=== PATIENT | male | born 1935 | race Caucasian/White ===

== ENCOUNTER → 2021-05-02 14:59 | Outpatient (CLI) | payer MEDICARE, SELFPAY ==
--- NOTE | ~2021-05-02 | CT_ITS ---
EXAMINATION: CT diagnostic chest wo con EXAM DATE: 05/02/2021 15:16 INDICATION: R05 - Cough . TECHNIQUE: Spiral CT of the chest without contrast. Axial, coronal and sagittal images of the chest were reviewed. Coronal maximum intensity pixel images of chest reviewed. The dose-length product ( DLP) for this examination was 328.17 mGy-cm. The exposure was tailored according to patient size (au to mA exposure control), and iterative reconstruction (ASIR) was used as additional dose reduction te chnique. There is no prior study for comparison. FINDINGS: The lungs are clear. There are no pleural or pericardial effusions. Tracheobronchial t ree is patent. There is no mediastinal, hilar or axillary lymphadenopathy. There is no pneumothor ax. Heart normal in size. There is mild coronary arterial calcification, arterial sclerosis. Upp er abdomen is unremarkable. Moderate-sized lower thoracic bridging endplate osteophytes. Goiter IMPRESSION: 1. Clear lungs. Reviewed, dictated and finalized at location B. IMPRESSION: 1. Clear lungs.
== END ==
PROVIDERS: PCP Nurse Practitioner; Visit Provider Nurse Practitioner
DX: Z12.2 Encounter for screening for malignant neoplasm of respiratory organs (principal); Z87.891 Personal history of nicotine dependence
CPT/HCPCS: 71250

== ENCOUNTER 2022-03-27 21:27 | Emergency (ER) | payer MEDICARE, SELFPAY ==
[2022-03-27] VITALS (13 sets, daily range): BP systolic 131–163; BP diastolic 54–69; PULSE 70–90; RESP 16–36; TEMP 36.1; O2SAT 93–96
--- NOTE | ~2022-03-27 | XR_ITS ---
EXAMINATION: XR chest 1V portable INDICATION: Shortness of breath, COVID 19 positive TECHNIQUE: Portable AP chest at 2158 hours COMPARISON: 07/31/2016 FINDINGS: There are minimal airspace opacities of the lung bases. Cardiomegaly is noted. There is no pleural effusion or pneumothorax. IMPRESSION: 1. Minimal bibasilar airspace opacities, consistent with atelectasis versus pneumonia. 2. Cardiomegaly. Reviewed, dictated and finalized at location F. IMPRESSION: 1. Minimal bibasilar airspace opacities, consistent with atelectasis versus pne umonia. 2. Cardiomegaly.
--- NOTE | 2022-03-27 21:35 | ECG_ITS ---
Measurements Intervals [place] Rate: 78 P: 56 FL: 165 QRS: -60 QRSD: 134 T: 120 QT: 423 QTc: 482 Interpretive Statements SINUS RHYTHM WITH OCCASIONAL VENTRICULAR PREMATURE COMPLEXES LEFT AXIS DEVIATION [QRS AXIS < -30] LEFT BUNDLE BRANCH BLOCK [120+ ms QRS DURATION, 80+ ms Q/S IN V1/V2, 85+ ms R IN I/aVL/V5/V6] ABNORMAL ECG NO PREVIOUS ECG AVAILABLE FOR COMPARISON Electronically Signed On 03-28-2022 11:29:49 CDT by Eber Delaney M.D.
[2022-03-27 22:04] LABS: Basophils Absolute Auto 0.1 K/mm3 (0.0-0.1); Basophils Percent Auto 1.1 % (0.2-1.2); Eosinophils Percent Auto 0.7 % (0-4.4); Hematocrit 46.9 % (42.0-52.0); Hemoglobin 15.1 g/dL (14.0-18.0); Immature Granulocyte Absolute 0.02 K/mm3 (0.00-0.031); Immature Granulocyte Percent A 0.4 % (0-0.5); Lymphocytes Absolute Auto 1.09 K/mm3 (0.9-3.2); Lymphocytes Percent Auto 19.7 % (18.3-44.2); Mean Corpuscular HGB Conc 32.2 g/dl (32-36); Mean Corpuscular Hemoglobin 30.4 pg (26-34); Mean Corpuscular Volume 94.4 fl (80-100); Mean Platelet Volume 12.5 fl (7.4-10.4); Monocytes Absolute Auto 1.3 K/mm3 (0.1-0.6); Monocytes Percent Auto 23.3 % (2.6-8.5); Neutrophils Percent Auto 54.8 % (45.5-73.1); Platelet Count Result 104 k/mm3 (150-375); Red Blood Count 4.97 M/mm3 (4.6-6.20); White Blood Count 5.5 K/mm3 (4.5-10.0)
[2022-03-27 22:16] LABS: Alanine Aminotransferase 19 U/L (6-50); Alkaline Phosphatase 47 U/L (38-126); Anion Gap 10 mmol/L (8-16); Aspartate Amino Transferase 37 U/L (17-59); Bilirubin,Total 1.6 mg/dL (0.2-1.3); Blood Urea Nitrogen 27 mg/dL (9-20); Calcium 8.4 mg/dL (8.4-10.2); Carbon Dioxide 24 mmol/L (22-30); Chloride 105 mmol/L (98-107); Estimated CRCL calculation 31 ml/min; Estimated Glomerular Filt Rate 48; Glucose 129 mg/dL (65-110); Potassium 3.9 mmol/L (3.4-5.0); Sodium 139 mmol/L (137-145)
--- NOTE | 2022-03-28 00:09 | ED.SOB ---
HPI - SOB/Dyspnea General Chief Complaint: Shortness of Breath/Dyspnea Stated Complaint: SOB, COVID + Time Seen by Provider: 03/27/22 22:08 History of Present Illness HPI Narrative: Patient is an 87-year-old male who presents ER after testing positive for COVID-19 at home. His is also positive. He reports he has been feeling weak and mildly short of breath. Occasional cough. No chest pain or chest pressure. She has been on no medications. He reports he has had his COVID vaccination. Some history hard to obtain due to patient being hard of hearing. Patient has had no falls. He is not oxygen dependent. Related Data Home Medications Medication Instructions Recorded Confirmed aspirin 81 mg tablet,delayed 81 mg PO DAILY 09/09/19 08/09/21 release (Adult Low Dose Aspirin) Allergies Allergy/AdvReac Type Severity Reaction Status Date / Time Penicillins Allergy Unknown Hives Verified 03/27/22 21:36 Review of Systems Review of Systems: All systems reviewed & are unremarkable except as noted in HPI and below Constitutional: Constitutional: Denies chills, Reports fatigue and Reports fever(s) ENT: Denies nasal congestion and Denies sore throat Cardiovascular: Cardiovascular: Denies chest pain, Denies rapid heart rate and Denies radiating jaw, neck or arm pain Respiratory: Respiratory: Denies chest congestion, Reports cough, Reports dyspnea and Denies wheezing Gastrointestinal: Gastrointestinal: Denies abdominal pain, Denies diarrhea, Denies nausea and Denies vomiting Musculoskeletal: Musculoskeletal: Denies back pain and Denies myalgias PMFSH Past Medical History Medical History Bradycardia Cataract Right surgery 09/2020 Chicken pox CVA (cerebral vascular accident) Taking Clopidogrel Emphysema of lung Hypertension Hypertriglyceridemia Type 2 diabetes mellitus Surgical History Surgical History H/O removal of cyst 03/2019 Family History Family History Mother Diabetes mellitus Family history of malignant neoplasm Sibling Liver disease Brain tumor Social History Social History Smoking packs per day: 0.5 Smoking cigarettes per day: 10.0 Smoking status: Current every day smoker Alcohol intake: never Substance use: never Exam Narrative: GENERAL: Chronically ill-appearing, well-nourished, and in no acute distress. HEAD: Normocephalic, atraumatic. ENT: Mucous membranes moist. CHEST: Clear to auscultation with basilar crackles. No respiratory distress. HEART: Regular rate and rhythm. Normal peripheral pulses. ABDOMEN: Soft, nontender, nondistended. EXTREMITIES: Normal range of motion. No edema. SKIN: Warm, dry, no rash. NEURO: Alert and oriented x3. PSYCH: Normal mood and affect. Course Course Emergency Course: Patient resting comfortably. Reports he feels as if he is able to go home and does not feel short of breath. No hypoxia. Patient has multiple medication interactions with Paxlovid and thus I do not feel he should receive Paxil bed. He has been vaccinated. He will be prescribed azithromycin for questionable basilar pneumonia especially given lung disease and advanced age. Vital Signs Vital signs: Vital Signs Temperature 97 F L 03/27/22 21:28 Pulse Rate 85 03/27/22 21:28 Respiratory Rate 16 03/27/22 21:28 Blood Pressure 131/54 L 03/27/22 21:28 Pulse Oximetry 96 03/27/22 21:28 Oxygen Delivery Room Air 03/27/22 21:28 Temperature 97 F L 03/27/22 21:28 Pulse Rate 83 03/27/22 23:46 Respiratory Rate 31 H 03/27/22 23:46 Blood Pressure 163/69 H 03/27/22 23:46 Pulse Oximetry 94 03/27/22 23:46 Oxygen Delivery Room Air 03/27/22 21:28 MDM - SOB/Dyspnea Lab Data Result diagrams: 03/27/22 21:54
[2022-03-28 00:16] VITALS: BP 147/83; PULSE 86; RESP 24; O2SAT 95
[2022-03-28 00:32] VITALS: PULSE 86; RESP 37; O2SAT 94
[2022-03-28 00:45] VITALS: PULSE 80; RESP 34
[2022-03-28 00:46] VITALS: BP 164/72; PULSE 84; RESP 20; O2SAT 94
== END 2022-03-28 01:13 | disposition home or self-care (01) ==
PROVIDERS: Emergency Provider Emergency Medicine; PCP Internal Medicine
DX: U07.1 COVID-19 (principal); I10 Essential (primary) hypertension; E11.9 Type 2 diabetes mellitus without complications; J43.9 Emphysema, unspecified; F17.210 Nicotine dependence, cigarettes, uncomplicated
CPT/HCPCS: 36415; 71045; 80053; 85025; 93005; 99283

== ENCOUNTER 2022-03-29 11:30 | Outpatient (RCR) | payer MEDICARE, SELFPAY ==
[2022-03-29 11:59] VITALS: BP 137/94; PULSE 80; RESP 20; TEMP 36.4; O2SAT 100
[2022-03-29] MEDS: ACETAMINOPHEN 325 MG TABLET 650 MG PO (12:05)
[2022-03-29] MEDS: FAMOTIDINE 20 MG TABLET PO (12:05)
[2022-03-29] MEDS: diphenhydrAMINE HCl CAP 25 MG CAPSULE PO (12:05)
--- NOTE | 2022-03-29 12:18 | PC.NURSE ---
Spoke to Ms Giles and she is giving permission for consent to treat and also for the use of medication. She has no other questions at this time.
[2022-03-29] MEDS: BEBTELOVIMAB 175 MG/2 ML VIAL IV PUSH (12:40)
[2022-03-29 13:22] VITALS: BP 130/88; PULSE 87; RESP 20; O2SAT 99
== END 2022-03-29 16:00 ==
LOC: AMCINF 11:30
PROVIDERS: Visit Provider Internal Medicine Hematology & Oncology
DX: U07.1 COVID-19 (principal); I10 Essential (primary) hypertension; J44.9 Chronic obstructive pulmonary disease, unspecified; N18.9 Chronic kidney disease, unspecified; E11.9 Type 2 diabetes mellitus without complications
CPT/HCPCS: A9270; M0222; Q0222

== ENCOUNTER 2022-11-19 14:14 | Outpatient (CLI) | payer MEDICARE, SELFPAY ==
--- NOTE | ~2022-11-19 | XR_ITS ---
EXAMINATION: XR chest 2V Exam Date/Time: 11/19/2022 14:33 ASSEMBLER ARRANGER HISTORY: R05.9 - Cough, SOB Comparison: None available. RESULT: Lines, tubes, and devices: None. Lungs and pleura: Senescent changes, bibasilar atelectasis and scarring, otherwise clear. Cardiomediastinal silhouette: Stable. Other: No acute osseous or upper abdominal finding. IMPRESSION: No acute cardiopulmonary process. Reviewed, dictated and finalized at location K. MBLER ARRANGER
== END 2022-11-19 14:15 | disposition home or self-care (01) ==
PROVIDERS: PCP Internal Medicine; Visit Provider Nurse Practitioner
DX: R05.9 Cough, unspecified (principal)
CPT/HCPCS: 71046

== ENCOUNTER 2023-01-21 11:00 | Outpatient (CLI) | payer MEDICARE, SELFPAY ==
--- NOTE | ~2023-01-21 | US_ITS ---
EXAMINATION: US renal BI DATE: 01/21/2023 12:18 INDICATION: Proteinuria TECHNIQUE: Multiple grayscale and Doppler ultrasound images of the kidneys were obtained. COMPARISON: None. FINDINGS: The right kidney measures 8.1 x 4.1 x 3.5 cm. The left kidney measures 8.8 x 4.2 x 3.3 cm. The kidneys demonstrate normal parenchymal echogenicity. There is no hydronephrosis. The bladder demo nstrates mild wall thickening which could be due to incomplete distention. IMPRESSION: 1. Mild atrophy of the kidneys without hydronephrosis. 2. Mild wall thickening of the urinary bladder which could be due to incomplete distention. Reviewed, dictated and finalized at location F.
== END 2023-01-21 11:01 | disposition home or self-care (01) ==
PROVIDERS: PCP Nurse Practitioner; Visit Provider Internal Medicine Nephrology
DX: R80.9 Proteinuria, unspecified (principal); I10 Essential (primary) hypertension
CPT/HCPCS: 76775

== ENCOUNTER 2023-03-27 14:43 | Outpatient (CLI) | payer MEDICARE, SELFPAY ==
--- NOTE | 2023-03-27 15:32 | PCRCNOTE ---
PATIENT CAME IN FOR PFT, UNABLE TO PREFORM. MAURICE AT DR. DAVIS NOTIFIED. 6 MINUTE WALK COMPLETED.
--- NOTE | 2023-03-28 11:20 | WPDSIXMINUTE ---
Six Minute Walk Procedure Procedure Performed Pulmonary Stress Test (6 min walk) Six Minute Walk Six Minute Walk: This 6 minute walk test was carried out with the patient breathing ambient air. The pre-walk baseline saturation was 95%. The patient walked 182 m with no stops during testing. During the walk the oxyhemoglobin saturation remained in the range of 93%-96%. Impression: No evidence of oxyhemoglobin desaturation on this testing.
== END 2023-03-27 14:44 | disposition home or self-care (01) ==
PROVIDERS: PCP Nurse Practitioner; Visit Provider Internal Medicine Pulmonary Disease
DX: R05.9 Cough, unspecified (principal); Z87.891 Personal history of nicotine dependence
CPT/HCPCS: 94618

== ENCOUNTER 2023-12-26 22:40 | Inpatient (IN) | payer MEDICARE, SELFPAY ==
[2023-12-26] VITALS (7 sets, daily range): BP systolic 104–132; BP diastolic 44–58; PULSE 72–93; RESP 24–38; TEMP 36.1; O2SAT 82–97
--- NOTE | ~2023-12-26 | XR_ITS ---
EXAMINATION: XR chest 1V portable INDICATION: Shortness of breath TECHNIQUE: Portable AP chest at 2344 hours COMPARISON: 11/19/2022 FINDINGS: There are minimal airspace opacities of the lung bases. No pleural effusion or pneumothorax . The cardiomediastinal silhouette is normal for technique. IMPRESSION: 1. Minimal bibasilar airspace opacities, consistent with atelectasis versus pneumonia. Reviewed, dictated and finalized at location F. ERTY UNDERWRITER IMPRESSION: 1. Minimal bibasilar airspace opacities, consistent with atelectasis versus pne umonia.
--- NOTE | ~2023-12-26 | CT_ITS ---
CT head without contrast Indication: Unresponsive Technique: Serial scans were obtained through the brain without the administration of contrast. Dose reduction technique was used on this scan by utilizing automated exposure control and iterative recon struction technique. The dose-length product (DLP) was 681.00 mGy-cm. Findings: There is no evidence of intracranial hemorrhage, mass lesion, or acute infarct. Chronic inf arct present involving the left periventricular white matter and left insular cortex region. The vent ricles and subarachnoid spaces are dilated, consistent with mild atrophy. Low attenuation regions ar e seen within the periventricular white matter bilaterally, likely representing changes from chronic microvascular ischemic disease. There is no evidence of edema, mass effect or midline shift. The vi sualized paranasal sinuses and mastoid air cells are clear. Impression: No intracranial hemorrhage, mass, or acute infarct. Chronic left MCA distribution infarct. Atrophy and chronic white matter changes, as above. Reviewed, dictated and finalized at [facility]. SERVICE DIRECTOR Impression: No intracranial hemorrhage, mass, or acute infarct. Chronic left MCA distribution infarct. Atrophy and chronic white matter changes, as above.
--- NOTE | 2023-12-26 22:47 | ECG_ITS ---
Measurements Intervals [place] Rate: 72 P: 40 OR: 170 QRS: -61 QRSD: 142 T: 112 QT: 447 QTc: 490 Interpretive Statements SINUS RHYTHM WITH SINUS ARRHYTHMIA POSSIBLE LEFT ATRIAL ENLARGEMENT LEFT BUNDLE BRANCH BLOCK AND SINGLE NARROW QRS COMPLEX BASELINE ARTIFACT- V3-V4 ABNORMAL ECG COMPARED TO ECG 03/27/2022 21:43:01 SINUS ARRHYTHMIA NOW PRESENT Electronically Signed On 12-27-2023 6:42:18 MICROFILM PROCESSOR by Kamron Ralph D.O.
[2023-12-26 23:10] LABS: Alveolar/Arterial O2 Gradient 113.1 mmHg; Base Excess ABG 3.6 mEq/l (+/-2.0); Fractional Inspired Oxygen 50 %; HCO3 ABG 35.5 mEq/l (22.0-26.0); Oxygen Content ABG 21.5 %vol (16.0-22.0); Oxyhemoglobin 95.8 % THb (90.0-100.0); PO2 ABG 139.2 mmHg (80.0-100.0); PO2 FiO2 Ratio Arterial Blood 2.78 %; Total Hemoglobin 15.8 g/dL (12.0-18.0)
[2023-12-26 23:12] LABS: pH ABG 7.201 (7.350-7.450)
--- NOTE | 2023-12-26 23:12 | ED.GENADULT ---
HPI - General Adult General Chief complaint: Shortness of Breath/Dyspnea Stated complaint: DIFFICULTY IN BREATHING Time Seen by Provider: 12/26/23 22:40 History of Present Illness HPI narrative: patient is a 88-year-old gentleman who presents emergency department with chief complaint of shortness of breath. Patient has prior history of emphysema also history of chronic kidney disease and diabetes that presents to the ER with chief complaint of shortness of breath. The patient reports he has been having increasing shortness of breath EMS was called the patient was found to be hypoxic and extremely tachypneic the patient was given nebulizer treatments by EMS and was brought to the ER. Related Data Home Medications Medication Instructions Recorded Confirmed aspirin 81 mg tablet,delayed 81 mg PO DAILY 09/09/19 10/10/23 release (Adult Low Dose Aspirin) loratadine 10 mg tablet (Claritin) 10 mg PO DAILY 08/01/22 10/10/23 Allergies Allergy/AdvReac Type Severity Reaction Status Date / Time Penicillins Allergy Unknown Hives Verified 10/10/23 14:44 Review of Systems Review of Systems: A 10 system review of systems was completed on the patient and is negative except for what is stated in the HPI. Nursing and ancillary documentation was reviewed. [facility] Past Medical History Medical History Bradycardia Cataract Right surgery 09/2020 Chicken pox CVA (cerebral vascular accident) Taking Clopidogrel Emphysema of lung Hypertension Hypertriglyceridemia Type 2 diabetes mellitus Surgical History Surgical History H/O removal of cyst 03/2019 Family History Family History Mother , deseas-1966 (Cancer) Diabetes mellitus Family history of malignant neoplasm Sibling Liver disease Brain tumor Father , deseas1965 (Stroke) No problems noted. Social History Social History Smoking packs per day: 0.5 Smoking cigarettes per day: 10.0 Years smoked: 70 Smoking pack-years: 35.00 Smoking status: Current every day smoker Tobacco type: cigarettes Alcohol intake: former Alcohol use details: quit drinking approximately 1997 Substance use: never Lack of Transportation: YES Lack of Food: Never True Current Housing: I Have Housing Concerned About Future Housing: No Difficulty Paying Gas/Electric Bills: No Difficulty Paying for Meds: YES Currently Unemployed: No Education: High School Diploma/GED Difficulty w/ Childcare or Family Care: No Living arrangements: with family Occupation/Education: retired Gender identity (if verbalized by the patient): Male Exam Narrative: GENERAL: Ill-appearing, well-nourished, and in moderate acute respiratory distress. HEAD: Normocephalic, atraumatic. EYES: PERRLA and EOMI. ENT: Nares clear, no rhinorrhea or epistaxis. Mucous membranes moist. NECK: Supple. CHEST: Clear to auscultation. mild respiratory distress. HEART: Regular rate and rhythm. No murmur heard. Normal peripheral pulses. ABDOMEN: Soft, nontender, nondistended, normal active bowel sounds. EXTREMITIES: Normal range of motion. No edema. SKIN: Warm, dry, no rash. NEURO: No focal deficits. Alert and oriented x3. very drowsy slow to respond PSYCH: Normal mood and affect. Course Vital Signs Vital signs: Vital Signs Temperature 36.1 C L 12/26/23 22:50 Pulse Rate 72 12/26/23 22:50 Respiratory Rate 30 H 12/26/23 22:50 Blood Pressure 132/58 L 12/26/23 22:50 Pulse Oximetry 82 L 12/26/23 22:50 Oxygen Delivery Nasal Cannula 12/26/23 22:50 Oxygen Flow Rate 4 12/26/23 22:50 Temperature 36.1 C L 12/26/23 22:50 Pulse Rate 75 12/27/23 01:50 Respiratory Rate 35 H 12/27/23
[2023-12-26 23:13] LABS: Device NON-INVASIVE VENT; Modified Allen's Test Pass; Non-Invasive Expiratory Pressure 7 CMH2O; Non-Invasive Inspiratory Pressure 14 CMH2O; Non-Invasive Vent Rate 20 /MIN; PCO2 ABG 92.6 mmHg (35.0-45.0); Site Drawn RIGHT RADIAL
[2023-12-26 23:17] LABS: Basophils Absolute Auto 0.1 K/mm3 (0.0-0.1); Eosinophils Absolute Auto 0.1 K/mm3 (0-0.3); Hematocrit 52.4 % (42.0-52.0); Hemoglobin 15.5 g/dL (14.0-18.0); Immature Granulocyte Absolute 0.02 K/mm3 (0.00-0.031); Immature Granulocyte Percent A 0.3 % (0-0.5); Immature Platelet Fraction Pct 17.6 % (0.9-11.2); Lymphocytes Absolute Auto 1.09 K/mm3 (0.9-3.2); Lymphocytes Percent Auto 15.3 % (18.3-44.2); Mean Corpuscular HGB Conc 29.6 g/dl (32-36); Mean Corpuscular Volume 101.6 fl (80-100); Mean Platelet Volume 13.2 fl (7.4-10.4); Monocytes Absolute Auto 0.8 K/mm3 (0.1-0.6); Monocytes Percent Auto 10.5 % (2.6-8.5); Neutrophils Absolute Auto 5.1 K/mm3 (1.3-6.7); Neutrophils Percent Auto 70.9 % (45.5-73.1); Platelet Count Result 115 k/mm3 (150-375); Red Blood Count 5.16 M/mm3 (4.6-6.20); Red Cell Distribution Width 14.7 % (11.5-14.5); White Blood Count 7.1 K/mm3 (4.5-10.0)
[2023-12-26] MEDS: IPRATROPIUM 0.5 MG/ALBUTEROL SULFATE 2.5 MG AMPUL.NEB 3 ML INHALATION (23:26)
[2023-12-26 23:28] LABS: Lactic Acid Reflex 1.9 mmol/L (0.7-2.0)
[2023-12-26 23:30] LABS: Alanine Aminotransferase 15 U/L (6-50); Albumin Level 4.2 g/dL (3.5-5.1); Alkaline Phosphatase 71 U/L (38-126); Anion Gap 6 mmol/L (8-16); Aspartate Amino Transferase 29 U/L (17-59); Bilirubin,Total 1.9 mg/dL (0.2-1.3); Blood Urea Nitrogen 22 mg/dL (9-20); Calcium 8.4 mg/dL (8.4-10.2); Carbon Dioxide 33 mmol/L (22-30); Chloride 105 mmol/L (98-107); Estimated Glomerular Filt Rate > 60; Glucose 108 mg/dL (65-110); Lipase 122 U/L (23-300); Magnesium 2.3 mg/dL (1.6-2.3); Potassium 4.3 mmol/L (3.4-5.0); Sodium 144 mmol/L (137-145)
[2023-12-26 23:32] LABS: INR 1.1; Partial Thromboplastin Time 31.8 SECONDS (22.3-36.8); Prothrombin Time 14.8 Seconds (11.1-14.7)
[2023-12-26] MEDS: methylPREDNISolone SOD SUCC 125 MG VIAL IV PUSH (23:36)
[2023-12-26 23:42] LABS: NT Pro B Type Natriuretic Pept 14900 pg/mL (19.9-100); Troponin I 0.072 ng/mL (0.000-0.034)
[2023-12-27] VITALS (19 sets, daily range): BP systolic 92–122; BP diastolic 49–82; PULSE 57–92; RESP 8–35; TEMP 36.7; O2SAT 94–100
[2023-12-27 00:01] LABS: Procalcitonin 0.1 ng/mL
[2023-12-27 00:10] LABS: Influenza A QL RT-PCR Negative (Negative); Influenza B QL RT-PCR Negative (Negative); RSV RNA, RT-PCR Negative (Negative); SARS-CoV-2 RNA PCR Negative (Negative)
--- NOTE | 2023-12-27 01:00 | PC.NURSE ---
Pt thrashing in bed, pulling bipap mask off, pulling at tsang and attempting to get out of bed. ERP gave verbal order and then entering an order for soft restraints.
[2023-12-27 01:19] LABS: Add Urine Microscopic? YES; Appearance Urine Cloudy (Clear); Bacteria Urine 4+ /hpf; Bilirubin Urine 1+ (Negative); Blood Urine 1+ (Negative); Color Urine Dark Yellow (Yellow); Glucose Urine UA Negative (Negative); Ketones Urine Negative (Negative); Leukocyte Esterase Ur 1+ LEU/UL (Negative); Mucus Urine Present /lpf; Need Manual Microscopic Reviewed; Nitrate Urine Negative (Negative); Protein Urine 3+ mg/dL (Negative); Specific Grav Ur 1.024 (1.001-1.035); Squamous Epithelial Cell Urine Occasional /hpf (Few); WBC Urine >100 /hpf; pH Urine 5.5 (5.0-9.0)
[2023-12-27 02:01] LABS: Alveolar/Arterial O2 Gradient 41.6 mmHg; Base Excess ABG 1.7 mEq/l (+/-2.0); Fractional Inspired Oxygen 30 %; HCO3 ABG 31.7 mEq/l (22.0-26.0); Oxygen Content ABG 20.4 %vol (16.0-22.0); Oxygen Saturation ABG 94.1 % (95.0-100.0); Oxyhemoglobin 92.8 % THb (90.0-100.0); PO2 ABG 83.8 mmHg (80.0-100.0); PO2 FiO2 Ratio Arterial Blood 2.79 %; Total Hemoglobin 15.6 g/dL (12.0-18.0)
[2023-12-27 02:03] LABS: Device NON-INVASIVE VENT; Modified Allen's Test Pass; PCO2 ABG 75.3 mmHg (35.0-45.0); Site Drawn RIGHT RADIAL; pH ABG 7.242 (7.350-7.450)
[2023-12-27 02:04] LABS: Non-Invasive Expiratory Pressure 7 CMH2O; Non-Invasive Inspiratory Pressure 14 CMH2O; Non-Invasive Vent Rate 20 /MIN
[2023-12-27] MEDS: ASPIRIN 300 MG SUPPOSITORY RECTAL (02:07)
[2023-12-27] MEDS: DOXYCYCLINE 100 MG/NS 100 ML 100 MG/100 ML BAG IVPB (03:28)
[2023-12-27 03:42] LABS: Troponin I 0.068 ng/mL (0.000-0.034)
--- NOTE | 2023-12-27 05:05 | ADMGEN ---
This patient, Courtney Giles, was admitted to IMU Room 231-01. Patient/family oriented to hospital policies and general routines including ID bracelet, bed and alarms, visiting hours, pain management, procedures, bathroom and other care routines, personal items, smoking policy, room service/diet, and visiting hours. Information on how to activate the Rapid Response Team has been discussed. Patient/Family are encouraged to report perceived risks to care and to ask questions if they do not understand what they are told or what they should do.
--- NOTE | 2023-12-27 05:39 | PM.IMHP ---
H&P: HPI History of Present Illness Date/Time: 12/27/23 05:39 Chief Complaint: Shortness of breath Narrative: 88-year-old male with past medical history of COPD/emphysema, type 2 diabetes mellitus well controlled, chronic kidney disease, CVA and essential hypertension who presented to the ER via EMS from home due to shortness of breath. Majority of history obtained from review of records and ER report. Patient does not wear oxygen at home and does not use nebulizer treatments. EMS was called to the patient's home is satting 80% on room air. They gave to nebulizer treatments in route with little improvement. He was satting in the 80s on 4 L. He was lethargic sciatic and cyanotic and would only respond with occasional nods her shaking of his head. At times the patient was restless and combative and required soft restraints. Patient was mostly responsive only to noxious stimuli. Family reported the patient has chronic left-sided deficits from his CVA. At the time of my evaluation the patient did attempt to swing his arm once but as the course of my evaluation went on the patient became progressively less responsive. He was having prolonged episodes of apnea. He intermittently would start breathing again with sternal rub. However was not becoming agitated or restless with sternal rub in would only start taking deep breaths again. The patient only minimally flinch twin an ABG was performed. ABG demonstrated improving pCO2 that it was almost normalized pH was minimally improved. The family had reported to the ER staff that the patient had multiple falls home. Patient is on aspirin and Plavix at home. There are no obvious signs of trauma to the head at the time of my evaluation. Nursing staff reports the patient's urine was dark yellow. He has had essentially no urine output since arrival to the IMU. He has a Mora catheter in place that appears to be draining well. Nursing staff reports the patient did have some dried blood on his penis and thigh when he arrived to the IMU. ER provider did discuss patient's condition with family. 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 Thus the patient was made DNR/DNI. Review of Systems Review of Systems: ROS unobtainable: Yes unobtainable due to mental status PMFSH Past Medical History Medical History (Updated 12/27/23 @ 05:53 by Angie Thompson DO) Bradycardia Cataract Right surgery 09/2020 Chicken pox Chronic kidney disease, stage 2 (mild) CVA (cerebral vascular accident) Taking Clopidogrel Emphysema of lung Hearing loss of both ears Hypertension Hypertriglyceridemia Type 2 diabetes mellitus Surgical History Surgical History H/O removal of cyst 03/2019 Family History Family History Mother , deseased-1966 (Cancer) Diabetes mellitus Family history of malignant neoplasm Sibling Liver disease Brain tumor Father , deseased 1965 (Stroke) No problems noted. Social History Social History (Updated 12/27/23 @ 06:55 by Angie Thompson DO) Social History: Patient lives at home with his . He still continues to smoke. 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 Code status: DNR/DNI Surrogate decision maker: Smoking packs per day: 0.5 Smoking cigarettes per day: 10.0 Years smoked: 70 Smoking pack-years: 35.00 Smoking status: Current every day smoker Tobacco type: cigarettes Alcohol intake: former Alcohol use details: quit drinking approximately 1997 Substance use: never Lack of Transportation: YES Lack of Food: Never True Current Housing: I Have Housing Concerned About Future Housing: No Difficulty Paying Gas/Electric Bills: No Difficulty Paying for Meds: YES Currently Unemployed: No [employer]
[2023-12-27 06:17] LABS: Alveolar/Arterial O2 Gradient 48.8 mmHg; Base Excess ABG -0.9 mEq/l (+/-2.0); Fractional Inspired Oxygen 28 %; HCO3 ABG 26.7 mEq/l (22.0-26.0); Oxygen Content ABG 19.8 %vol (16.0-22.0); Oxygen Saturation ABG 95.1 % (95.0-100.0); Oxyhemoglobin 93.9 % THb (90.0-100.0); PCO2 ABG 56.5 mmHg (35.0-45.0); PO2 ABG 84.2 mmHg (80.0-100.0); PO2 FiO2 Ratio Arterial Blood 3.01 %
[2023-12-27 06:20] LABS: Device BIPAP; Inspiratory Pressure 22 cmH2O; Modified Allen's Test Pass; Site Drawn RIGHT RADIAL; pH ABG 7.293 (7.350-7.450)
[2023-12-27 06:21] LABS: Expiratory Pressure 6 cmH2O
[2023-12-27 06:31] LABS: Troponin I 0.058 ng/mL (0.000-0.034)
[2023-12-27] MEDS: SODIUM CHLORIDE 0.9% IV 1,000 ML 500 ML IV CONT (06:59)
[2023-12-27] MEDS: methylPREDNISolone SOD SUCC 125 MG VIAL 60 MG IV PUSH (07:01)
[2023-12-27 07:11] LABS: Hematocrit 50.8 % (42.0-52.0); Hemoglobin 14.5 g/dL (14.0-18.0); Immature Platelet Fraction Pct 16.8 % (0.9-11.2); Mean Corpuscular HGB Conc 28.5 g/dl (32-36); Mean Corpuscular Hemoglobin 30.3 pg (26-34); Mean Corpuscular Volume 106.1 fl (80-100); Mean Platelet Volume 13.4 fl (7.4-10.4); Platelet Count Result 107 k/mm3 (150-375); Red Blood Count 4.79 M/mm3 (4.6-6.20); Red Cell Distribution Width 14.5 % (11.5-14.5); White Blood Count 8.1 K/mm3 (4.5-10.0)
[2023-12-27 08:00] LABS: Anion Gap 5 mmol/L (8-16); Blood Urea Nitrogen 21 mg/dL (9-20); Calcium 7.9 mg/dL (8.4-10.2); Carbon Dioxide 32 mmol/L (22-30); Chloride 107 mmol/L (98-107); Estimated CRCL calculation 43 ml/min; Estimated Glomerular Filt Rate > 60; Glucose 153 mg/dL (65-110); Potassium 4.1 mmol/L (3.4-5.0); Sodium 144 mmol/L (137-145)
[2023-12-27] MEDS: IPRATROPIUM 0.5 MG/ALBUTEROL SULFATE 2.5 MG AMPUL.NEB 3 ML INHALATION ×2 (08:50→13:41)
[2023-12-27 12:00] LABS: Magnesium 2.1 mg/dL (1.6-2.3); Phosphorus 3.2 mg/dL (2.5-4.5)
[2023-12-27] MEDS: ENOXAPARIN 40 MG/0.4 ML SYRINGE SUB-Q (12:08)
[2023-12-27] MEDS: SODIUM CHLORIDE 0.9% IV 1,000 ML 75 ML IV CONT (12:08)
[2023-12-27 13:07] LABS: Folic Acid 5.2 ng/mL (2.76->20)
--- NOTE | 2024-01-08 08:26 | PM.EVENT ---
Event Note Event Note Event Note: PLEASE SEE DC SUMMARY UNDER CORRECT [facility] [address] [place] [address] Discharge Summary Signed with Addenda Patient: Courtney Giles MR#: [id number] : 1935 Acct:[id number] Age: 88 ADM Date: 12/27/23 Loc: [id number]: Micah Walker M.D. cc: Micah Walker MD; Timbo Ndiaye DO~ DS: Admitting Diagnosis Discharge Date 12/27/2023: Admitting Diagnosis (1) Acute hypercapnic respiratory failure: ?Code(s): J96.02 - Acute respiratory failure with hypercapnia ?Status:?Acute (2) Asthma exacerbation in COPD: ?Code(s): J44.1 - Chronic obstructive pulmonary disease with (acute) exacerbation; J45.901 - Unspecified asthma with (acute) exacerbation ?Status:?Acute (3) Elevated troponin: ?Code(s): R79.89 - Other specified abnormal findings of blood chemistry ?Status:?Acute (4) Pneumonia: ?Qualifiers: ?Laterality:?bilateral??Lung location:?lower lobe of lung??Pneumonia type:?due to unspecified organism? Qualified Code(s):?J18.9 - Pneumonia, unspecified organism ?Code(s): J18.9 - Pneumonia, unspecified organism ?Status:?Acute DS: Discharge Diagnosis Discharge Diagnosis (1) Dehydration: ?Code(s): E86.0 - Dehydration ?Status:?Acute (2) Acute hypercapnic respiratory failure: ?Code(s): J96.02 - Acute respiratory failure with hypercapnia ?Status:?Acute (3) Asthma exacerbation in COPD: ?Code(s): J44.1 - Chronic obstructive pulmonary disease with (acute) exacerbation; J45.901 - Unspecified asthma with (acute) exacerbation ?Status:?Acute (4) Elevated troponin: ?Code(s): R79.89 - Other specified abnormal findings of blood chemistry ?Status:?Acute (5) Pneumonia: ?Qualifiers: ?Laterality:?bilateral??Lung location:?lower lobe of lung??Pneumonia type:?due to unspecified organism? Qualified Code(s):?J18.9 - Pneumonia, unspecified organism ?Code(s): J18.9 - Pneumonia, unspecified organism ?Status:?Acute (6) Diabetes mellitus with chronic kidney disease: ?Qualifiers: ?Diabetes mellitus type:?type 2??Diabetes mellitus custodial insulin use:?without terminal superintendent use??Chronic kidney disease stage:?unspecified stage? Qualified Code(s):?E11.22 - Type 2 diabetes mellitus with diabetic chronic kidney disease ?Code(s): E11.22 - Type 2 diabetes mellitus with diabetic chronic kidney disease ?Status:?Acute (7) Proteinuria: ?Qualifiers: ?Proteinuria type:?unspecified? Qualified Code(s):?R80.9 - Proteinuria, unspecified ?Code(s): R80.9 - Proteinuria, unspecified ?Status:?Acute (8) Tobacco abuse: ?Code(s): Z72.0 - Tobacco use ?Status:?Acute (9) CKD (chronic kidney disease): ?Qualifiers: ?Chronic kidney disease stage:?unspecified stage? Qualified Code(s):?N18.9 - Chronic kidney disease, unspecified ?Code(s): N18.9 - Chronic kidney disease, unspecified ?Status:?Acute (10) Hypocalcemia: ?Code(s): E83.51 - Hypocalcemia ?Status:?Acute (11) Hypertension: ?Qualifiers: ?Hypertension type:?essential hypertension? Qualified Code(s):?I10 - Essential (primary) hypertension ?Code(s): I10 - Essential (primary) hypertension ?Status:?Acute (12) Hospice care patient: ?Code(s): Z51.5 - Encounter for palliative care ?Status:?Acute DS: Summary Hospital Course Reason for hospitalization: Patient brought to the ER for evaluation by EMS with shortness of breath, altered mental status, lethargic to the point that he almost passed out! Hospital Course: H&P: HPI History of Present Illness Date/Time: 12/27/23? 05:39 Chief Complaint: Shortness of breath Narrative: 88-year-old male with past medical history of COPD/emphysema, type 2 diabetes mellitus
--- NOTE | 2024-01-10 13:59 | PM.DS ---
DS: Admitting Diagnosis Discharge Date 12/27/23 Admitting Diagnosis Admitting Diagnosis (1) Acute hypercapnic respiratory failure: ?Code(s): J96.02 - Acute respiratory failure with hypercapnia ?Status:?Acute (2) Asthma exacerbation in COPD: ?Code(s): J44.1 - Chronic obstructive pulmonary disease with (acute) exacerbation; J45.901 - Unspecified asthma with (acute) exacerbation ?Status:?Acute (3) Elevated troponin: ?Code(s): R79.89 - Other specified abnormal findings of blood chemistry ?Status:?Acute (4) Pneumonia: ?Qualifiers: ?Laterality:?bilateral??Lung location:?lower lobe of lung??Pneumonia type:?due to unspecified organism? Qualified Code(s):?J18.9 - Pneumonia, unspecified organism ?Code(s): J18.9 - Pneumonia, unspecified organism ?Status:?Acute DS: Discharge Diagnosis Discharge Diagnosis (1) Dehydration: Code(s): E86.0 - Dehydration Status: Acute (2) Acute hypercapnic respiratory failure: Code(s): J96.02 - Acute respiratory failure with hypercapnia Status: Acute (3) Asthma exacerbation in COPD: Code(s): J44.1 - Chronic obstructive pulmonary disease with (acute) exacerbation; J45.901 - Unspecified asthma with (acute) exacerbation Status: Acute (4) Elevated troponin: Code(s): R79.89 - Other specified abnormal findings of blood chemistry Status: Acute (5) Pneumonia: Qualifiers: Laterality: bilateral Lung location: lower lobe of lung Pneumonia type: due to unspecified organism Qualified Code(s): J18.9 - Pneumonia, unspecified organism Code(s): J18.9 - Pneumonia, unspecified organism Status: Acute (6) Diabetes mellitus with chronic kidney disease: Qualifiers: Diabetes mellitus type: type 2 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 Chronic kidney disease stage: unspecified stage Qualified Code(s): E11.22 - Type 2 diabetes mellitus with diabetic chronic kidney disease Code(s): E11.22 - Type 2 diabetes mellitus with diabetic chronic kidney disease Status: Acute (7) Proteinuria: Qualifiers: Proteinuria type: unspecified Qualified Code(s): R80.9 - Proteinuria, unspecified Code(s): R80.9 - Proteinuria, unspecified Status: Acute (8) Tobacco abuse: Code(s): Z72.0 - Tobacco use Status: Acute (9) CKD (chronic kidney disease): Qualifiers: Chronic kidney disease stage: unspecified stage Qualified Code(s): N18.9 - Chronic kidney disease, unspecified Code(s): N18.9 - Chronic kidney disease, unspecified Status: Acute (10) Hypocalcemia: Code(s): E83.51 - Hypocalcemia Status: Acute (11) Hypertension: Qualifiers: Hypertension type: essential hypertension Qualified Code(s): I10 - Essential (primary) hypertension Code(s): I10 - Essential (primary) hypertension Status: Acute (12) Hospice care patient: Code(s): Z51.5 - Encounter for palliative care Status: Acute DS: Summary Hospital Course Reason for hospitalization: Patient brought to the ER for evaluation by EMS with shortness of breath, altered mental status, lethargic to the point that he almost passed out! Hospital Course: H&P: HPI History of Present Illness Date/Time: 12/27/23? 05:39 Chief Complaint: Shortness of breath Narrative: 88-year-old male with past medical history of COPD/emphysema, type 2 diabetes mellitus well controlled, chronic kidney disease, CVA and essential hypertension who presented to the ER via EMS from home due to shortness of breath.? Majority of history obtained from review of records and ER report.? Patient does not wear oxygen at home and does not use nebulizer treatments.? EMS was called to the patient's home is satting 80% on room air.? They gave to nebulizer treatments in route with little improvement.? He was satting in the 80s on 4 L.? He was lethargic
== END 2023-12-27 14:55 | disposition hospice, inpatient (51) | DRG 189 ==
LOC: ANHED 12-27 02:11 → ANHIMU 12-27 03:08
PROVIDERS: Admitting Provider Internal Medicine; Emergency Provider Emergency Medicine; PCP Internal Medicine; Visit Provider Family Medicine
DX: J96.02 Acute respiratory failure with hypercapnia (principal); J18.9 Pneumonia, unspecified organism; J44.0 Chronic obstructive pulmonary disease with (acute) lower respiratory infection; J45.901 Unspecified asthma with (acute) exacerbation; J44.1 Chronic obstructive pulmonary disease with (acute) exacerbation; I12.9 Hypertensive chronic kidney disease with stage 1 through stage 4 chronic kidney disease, or unspecified chronic kidney disease; N18.9 Chronic kidney disease, unspecified; J43.9 Emphysema, unspecified; E86.0 Dehydration; E83.51 Hypocalcemia; E11.22 Type 2 diabetes mellitus with diabetic chronic kidney disease; E78.1 Pure hyperglyceridemia; R29.6 Repeated falls; R79.89 Other specified abnormal findings of blood chemistry; F17.210 Nicotine dependence, cigarettes, uncomplicated; I69.398 Other sequelae of cerebral infarction; Z20.822 Contact with and (suspected) exposure to COVID-19; Z79.02 Long term (current) use of antithrombotics/antiplatelets; Z51.5 Encounter for palliative care
CPT/HCPCS: 36415; 36600; 70450; 71045; 80048; 80053; 81001; 82607; 82746; 82805; 83605; 83690; 83735; 83880; 84100; 84145; 84484; 85025; 85027; 85055; 85610; 85730; 87040; 87077; 87086; 87088; 87186; 87637; 93005; 94002; 94003; 94640; 96365; 96367; 96375; 96376; 99291; A9270; G0378; J0696; J1650; J2930; J7030

== ENCOUNTER 2023-12-27 14:56 | HOS | payer OTHER, MEDICARE, SELFPAY ==
--- NOTE | 2023-12-27 15:40 | PM.DS ---
DS: Admitting Diagnosis Discharge Date 12/27/2023: Admitting Diagnosis (1) Acute hypercapnic respiratory failure: ?Code(s): J96.02 - Acute respiratory failure with hypercapnia ?Status:?Acute (2) Asthma exacerbation in COPD: ?Code(s): J44.1 - Chronic obstructive pulmonary disease with (acute) exacerbation; J45.901 - Unspecified asthma with (acute) exacerbation ?Status:?Acute (3) Elevated troponin: ?Code(s): R79.89 - Other specified abnormal findings of blood chemistry ?Status:?Acute (4) Pneumonia: ?Qualifiers: ?Laterality:?bilateral??Lung location:?lower lobe of lung??Pneumonia type:?due to unspecified organism? Qualified Code(s):?J18.9 - Pneumonia, unspecified organism ?Code(s): J18.9 - Pneumonia, unspecified organism ?Status:?Acute DS: Discharge Diagnosis Discharge Diagnosis (1) Dehydration: Code(s): E86.0 - Dehydration Status: Acute (2) Acute hypercapnic respiratory failure: Code(s): J96.02 - Acute respiratory failure with hypercapnia Status: Acute (3) Asthma exacerbation in COPD: Code(s): J44.1 - Chronic obstructive pulmonary disease with (acute) exacerbation; J45.901 - Unspecified asthma with (acute) exacerbation Status: Acute (4) Elevated troponin: Code(s): R79.89 - Other specified abnormal findings of blood chemistry Status: Acute (5) Pneumonia: Qualifiers: Laterality: bilateral Lung location: lower lobe of lung Pneumonia type: due to unspecified organism Qualified Code(s): J18.9 - Pneumonia, unspecified organism Code(s): J18.9 - Pneumonia, unspecified organism Status: Acute (6) Diabetes mellitus with chronic kidney disease: Qualifiers: Diabetes mellitus type: type 2 Diabetes mellitus mcc insulin use: without termite inspector use Chronic kidney disease stage: unspecified stage Qualified Code(s): E11.22 - Type 2 diabetes mellitus with diabetic chronic kidney disease Code(s): E11.22 - Type 2 diabetes mellitus with diabetic chronic kidney disease Status: Acute (7) Proteinuria: Qualifiers: Proteinuria type: unspecified Qualified Code(s): R80.9 - Proteinuria, unspecified Code(s): R80.9 - Proteinuria, unspecified Status: Acute (8) Tobacco abuse: Code(s): Z72.0 - Tobacco use Status: Acute (9) CKD (chronic kidney disease): Qualifiers: Chronic kidney disease stage: unspecified stage Qualified Code(s): N18.9 - Chronic kidney disease, unspecified Code(s): N18.9 - Chronic kidney disease, unspecified Status: Acute (10) Hypocalcemia: Code(s): E83.51 - Hypocalcemia Status: Acute (11) Hypertension: Qualifiers: Hypertension type: essential hypertension Qualified Code(s): I10 - Essential (primary) hypertension Code(s): I10 - Essential (primary) hypertension Status: Acute (12) Hospice care patient: Code(s): Z51.5 - Encounter for palliative care Status: Acute DS: Summary Hospital Course Reason for hospitalization: Patient brought to the ER for evaluation by EMS with shortness of breath, altered mental status, lethargic to the point that he almost passed out! Hospital Course: H&P: HPI History of Present Illness Date/Time: 12/27/23? 05:39 Chief Complaint: Shortness of breath Narrative: 88-year-old male with past medical history of COPD/emphysema, type 2 diabetes mellitus well controlled, chronic kidney disease, CVA and essential hypertension who presented to the ER via EMS from home due to shortness of breath.? Majority of history obtained from review of records and ER report.? Patient does not wear oxygen at home and does not use nebulizer treatments.? EMS was called to the patient's home is satting 80% on room air.? They gave to nebulizer treatments in route with little improvement.? He was satting in the 80s on 4 L.? He was lethargic sciatic and cyanotic
[2023-12-27] MEDS: MORPHINE SULFATE INJ (*CRX) 50 MG in SODIUM CHLORIDE 0.9% IV 95 ML IV CONT (16:16)
[2023-12-27 18:09] VITALS: BMI 31.8
--- NOTE | 2023-12-27 18:41 | PC.NURSE ---
This patient, Courtney Giles, was received from [facility] on 12/27/23 at 1830. Patient/family oriented to unit policies and routines.
--- NOTE | 2023-12-27 19:31 | ADMGEN ---
This patient, Courtney Giles, was admitted to [facility] S[facility] Room 318-01. Patient/family oriented to hospital policies and general routines including ID bracelet, bed and alarms, visiting hours, pain management, procedures, bathroom and other care routines, personal items, smoking policy, room service/diet, and visiting hours. Information on how to activate the Rapid Response Team has been discussed. Patient/Family are encouraged to report perceived risks to care and to ask questions if they do not understand what they are told or what they should do.
--- NOTE | 2023-12-27 19:31 | PC.NURSE ---
This patient, Courtney Giles, was transferred to [facility] on 12/27/23 at 1831. Personal belongings sent with patient. Report given to Arline MCCORMICK. Appropriate documentation sent with patient.
--- NOTE | 2023-12-27 20:40 | PM.IMHP ---
H&P: HPI History of Present Illness Date/Time: 12/27/23 20:40 Chief Complaint: Uncontrolled dyspnea Narrative: This 88-year-old gentleman presents emergency department December 26 with shortness of breath and cough. Was found to have pulmonary infiltrates and required high-flow oxygen. On 4 L he was satting in the 80s. He did not want BiPAP. He did not want intubation. He was minimally responsive on the medical floor. Because of this is family opted for inpatient hospice service for control of dyspnea. 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 Social History Social History Social History: Patient lives at home with his . He still continues to smoke. 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 Code status: DNR/DNI Surrogate decision maker: Smoking packs per day: 0.5 Smoking cigarettes per day: 10.0 Years smoked: 70 Smoking pack-years: 35.00 Smoking status: Current every day smoker Tobacco type: cigarettes Alcohol intake: former Alcohol use details: quit drinking approximately 1997 Substance use: never Lack of Transportation: YES Lack of Food: Never True Current Housing: I Have Housing Concerned About Future Housing: No Difficulty Paying Gas/Electric Bills: No Difficulty Paying for Meds: YES Currently Unemployed: No Education: High School Diploma/GED Difficulty w/ Childcare or Family Care: No Living arrangements: with family Occupation/Education: retired Gender identity (if verbalized by the patient): Male Spiritual care concerns: Yes Meds Home Medications and Allergies Home Medications Medication Instructions Recorded Confirmed Type aspirin 81 mg tablet,delayed 81 mg PO DAILY 09/09/19 12/27/23 History release (Adult Low Dose Aspirin) loratadine 10 mg tablet (Claritin) 10 mg PO DAILY 08/01/22 12/27/23 History clopidogrel 75 mg tablet 75 mg PO DAILY #90 tabs 03/08/23 12/27/23 Rx lovastatin 40 mg tablet 40 mg PO QPM #90 tabs 08/05/23 12/27/23 Rx Allergies Allergy/AdvReac Type Severity Reaction Status Date / Time Penicillins Allergy Unknown Hives Verified 10/10/23 14:44 Vital Signs Vital Signs - 24 hr 12/27/23 18:16 Oxygen Delivery Room Air Exam Narrative: HEENT: PERRL, sclerae nonicteric, pharyngeal mucosa pink and intact NECK: No JVD CHEST: Coarse BS througout with insp and exp wheezes, prolonged exp phase, intermittent apneas HEART: NL S1/S2, regular, no murmur ABDOMEN: BS+, soft, nontender, no mass, no bruits EXTREMITIES: No cyanosis, edema, or clubbing NEUROLOGIC: CN intact and symmetric to inspection. MUSCULOSKELETAL: Tone and strength symmetric. PSYCH: Alert. Oriented to person, place, year and month. Assessment and Plan Assessment and plan (1) Palliative care encounter: Code(s): Z51.5 - Encounter for palliative care Status: Acute Assessment and Plan: Meets inpatient hospice criteria due to requiring continuous IV morphine for control of dyspnea. PRN palliative regimen ordered. 3/2 discussed care an
[2023-12-28] MEDS: MORPHINE SULFATE (*CRX) 2 MG/ML INJ IV PUSH ×2 (09:49→21:52)
[2023-12-28] MEDS: MORPHINE SULFATE INJ (*CRX) 50 MG in SODIUM CHLORIDE 0.9% IV 95 ML IV CONT (15:17)
[2023-12-28 15:48] VITALS: BP 130/63; PULSE 60; RESP 22; TEMP 36.6; O2SAT 92
[2023-12-28 21:56] VITALS: BP 73/35; PULSE 102; RESP 28; O2SAT 75
[2023-12-29] MEDS: LORazepam INJ (*CRX) 2 MG/ML VIAL 1 MG IV PUSH (00:18)
--- NOTE | 2023-12-29 06:58 | PC.NURSE ---
family members called for a nurse at about 03:30. Pt. seen and examined. patient was unresponsive and no longer breathing. Heart and lung sounds were absent. the charge nurse was called to the room and the patient was pronounced at 0345 on 12/29/23. family was present in the patient's room.
--- NOTE | 2023-12-29 07:14 | PM.DDS ---
Discharge Summary Date and Time Date of : 12/29/23 Time of : 03:45 Provider Pronounced By: Robin Cantu Probable Cause of Probable Cause of : Respiratory failure due to COPD Summary Hospital Course: Admitted to inpatient hospice service due to uncontrolled dyspnea. Medications titrated to comfort. Mr. Giles peacefully. Additional Data Confirmation of as documented by pronouncing clinician: Palpable Pulses, Response to Stimuli, Heart Tones and Breath Sounds Name of Provider Notified: Micah Walker Time Provider Notified: 03:59 Provider Requests Autopsy: No Family Requests Autopsy: No Stockroom Associate Notified: Yes Date [facility] Notified of : 12/29/23 Time [facility] Notified of : 04:01
== END 2023-12-29 03:45 | disposition expired | DRG 951 ==
LOC: ANHIMU 15:58 → ANH3MEDSUR 18:27
PROVIDERS: Admitting Provider Internal Medicine; PCP Internal Medicine; Visit Provider Internal Medicine
DX: Z51.5 Encounter for palliative care (principal); J96.02 Acute respiratory failure with hypercapnia; J18.9 Pneumonia, unspecified organism; J44.1 Chronic obstructive pulmonary disease with (acute) exacerbation; J44.0 Chronic obstructive pulmonary disease with (acute) lower respiratory infection; J43.9 Emphysema, unspecified; E86.0 Dehydration; E11.22 Type 2 diabetes mellitus with diabetic chronic kidney disease; I12.9 Hypertensive chronic kidney disease with stage 1 through stage 4 chronic kidney disease, or unspecified chronic kidney disease; N18.2 Chronic kidney disease, stage 2 (mild); R80.9 Proteinuria, unspecified; E83.51 Hypocalcemia; F17.210 Nicotine dependence, cigarettes, uncomplicated; Z86.73 Personal history of transient ischemic attack (TIA), and cerebral infarction without residual deficits; Z79.82 Long term (current) use of aspirin
CPT/HCPCS: A9270; J2060; J2270